=== PATIENT | male | born 1995 | race Caucasian/White ===

== ENCOUNTER → 2018-02-21 | Outpatient (CLI) | payer OTHER | LOC: LAB 16:09 | PROVIDERS: ATTEND Physician Assistant Medical | DX: R19.7 Diarrhea, unspecified (principal); R14.0 Abdominal distension (gaseous) | CPT/HCPCS: 36415; 82784; 87324; 87449 ==

== ENCOUNTER 2018-03-28 16:52 | Emergency (ER) | payer OTHER ==
--- NOTE | 2018-03-28 17:21 | ER Report ---
History and Physical Time Seen By MD: 17:07 Hx. of Stated Complaint: pt reports possible stomach ulcer since november HPI/ROS CHIEF COMPLAINT: epigastric pain HISTORY OF PRESENT ILLNESS: Pt states that he has had epigastric pain intermittently since November. Pt initially saw Dr. Shen who put him on Probiotics and when that did not work he went down to [place] to the gastric center and was placed on Citrosell. Pt states the pain has not improved. It comes and goes. Burning, achy pain. Pt not using anything otc. Pt statse coffee, alcohol, dairy make it worse. not sure if it is positional. no fevers. Pts bowel movement texture flutuate and feels he may have seen blood in past. no blood today. no vomiting or nausea. no fevers. No hx of ulcerative colitis or chrons, Pt statse grandmother had colon ca. REVIEW OF SYSTEMS: Constitutional: No fever, no chills. Eyes: No discharge. ENT: No sore throat. Cardiovascular: No chest pain, no palpitations. Respiratory: No cough, no shortness of breath. Gastrointestinal: + abdominal pain, no vomiting. Genitourinary: No hematuria. Musculoskeletal: No back pain. Skin: No rashes. Neurological: No headache. Allergies: Coded Allergies: No Known Drug Allergies (Unverified , 03/28/18) Home Meds Active Scripts Omeprazole (OMEPRAZOLE) 40 Mg Capsule.dr, 40 MG PO QDAY for 30 Days, #30 CAP Prov:KIMBERLY NEFF V DO 03/28/18 Past Medical/Surgical History pmhx abdominal pain Pshx: myringotomy tubes, wrist surgery Hx Smoking: No Hx Alcohol Use: Yes Constitutional Vital Sign - Last 24 Hours 03/28/18 17:00 Temp 97.9 Pulse 115 Resp 16 B/P (MAP) 140/106 Pulse Ox 96 O2 Delivery Room Air Physical Exam General Appearance: The patient is alert, has no immediate need for airway protection and no signs of toxicity. Eyes: Pupils equal and round no pallor or injection, EOMI ENT: no pharyngeal erythema or exudates, Mucous membranes are moist Respiratory: There are no retractions, lungs are clear to auscultation. Cardiovascular: Regular rate and rhythm. pulses are equal and symmetrical Gastrointestinal: Abdomen is soft with minimal tenderness epigastric, no masses, bowel sounds normal, no guarding, no rigidity or rebound Neurological: Cranial nerves II-XII grossly intact, no sensory or motor loss Skin: Warm and dry, no rashes. Musculoskeletal: Neck is supple non tender, no vertebral tenderness Extremities are nontender, nonswollen and have full range of motion. DIFFERENTIAL DIAGNOSIS: After history and physical exam differential diagnosis was considered for gastritits, peptic ulcer (gastric, stress vs h. pylori), pancreatitis, colitis Medical Decision Making Data Points Result Diagram: 03/28/18 1727 03/28/18 1727 Laboratory Hematology Test 03/28/18 17:27 Red Blood Count 6.55 M/uL (4.00-5.60) Mean Corpuscular Volume 85.5 fL (80.0-96.0) Mean Corpuscular Hemoglobin 29.8 pg (26.0-33.0) Mean Corpuscular Hemoglobin Concent 34.9 g/dL (32.0-36.0) Red Cell Distribution Width 13.1 % (11.5-14.5) Mean Platelet Volume 8.4 fL (7.2-11.1) Neutrophils (%) (Auto) 61.2 % (39.4-72.5) Lymphocytes (%) (Auto) 26.4 % (17.6-49.6) Monocytes (%) (Auto) 7.6 % (4.1-12.4) Eosinophils (%) (Auto) 4.3 % (0.4-6.7) Basophils (%) (Auto) 0.5 % (0.3-1.4) Nucleated RBC Relative Count (auto) 0.8 /100WBC Neutrophils # (Auto) 5.7 K/uL (2.0-7.4) Lymphocytes # (Auto) 2.5 K/uL (1.3-3.6) Monocytes # (Auto) 0.7 K/uL (0.3-1.0) Eosinophils # (Auto) 0.4 K/uL (0.0-0.5) Basophils # (Auto) 0.0 K/uL (0.0-0.1) Nucleated RBC Absolute Count (auto) 0.07 K/uL Sodium Level 141 mmol/L (137-145) Potassium Level 3.6 mmol/L (3.5-5.0) Chloride Level 101 mmol/L (98-107) Carbon Dioxide Level 23 mmol/L (22-30) Blood Urea Nitrogen 11 mg/dl (9-21) Creatinine 1.10 mg/dl (0.66-1.25) Glomerular Filtration Rate Calc > 60.0 Random Glucose 114 mg/dl (75-110) Calcium Level 9.4 mg/dl (8.4-10.2) Total Bilirubin 0.4 mg/dl (0.2-1.3) Aspartate Amino Transf (AST/SGOT) 27 U/L (0-35) Alanine Aminotransferase (ALT/SGPT) 22 U/L (0-56) Alkaline Phosphatase 99 U/L (0-126) Total Protein 7.5 gm/dl (6.3-8.2) Albumin 4.5 g/dl (3.5-5.0) Lipase 120 U/L (23-300) Helicobacter pylori IgG Antibody Negative (NEGATIVE) Chemistry Test 03/28/18 17:27 White Blood Count 9.3 k/uL (4.5-11.0) Red Blood Count 6.55 M/uL (4.00-5.60) Hemoglobin 19.5 g/dL (14.0-18.0) Hematocrit 56.0 % (42.0-52.0) Mean Corpuscular Volume 85.5 fL (80.0-96.0) Mean Corpuscular Hemoglobin 29.8 pg (26.0-33.0) Mean Corpuscular Hemoglobin Concent 34.9 g/dL (32.0-36.0) Red Cell Distribution Width 13.1 % (11.5-14.5) Platelet Count 231 K/uL (150-450) Mean Platelet Volume 8.4 fL (7.2-11.1) Neutrophils (%) (Auto) 61.2 % (39.4-72.5) Lymphocytes (%) (Auto) 26.4 % (17.6-49.6) Monocytes (%) (Auto) 7.6 % (4.1-12.4) Eosinophils (%) (Auto) 4.3 % (0.4-6.7) Basophils (%) (Auto) 0.5 % (0.3-1.4) Nucleated RBC Relative Count (auto) 0.8 /100WBC Neutrophils # (Auto) 5.7 K/uL (2.0-7.4) Lymphocytes # (Auto) 2.5 K/uL (1.3-3.6) Monocytes # (Auto) 0.7 K/uL (0.3-1.0) Eosinophils # (Auto) 0.4 K/uL (0.0-0.5) Basophils # (Auto) 0.0 K/uL (0.0-0.1) Nucleated RBC Absolute Count (auto) 0.07 K/uL Glomerular Filtration Rate Calc > 60.0 Calcium Level 9.4 mg/dl (8.4-10.2) Total Bilirubin 0.4 mg/dl (0.2-1.3) Aspartate Amino Transf (AST/SGOT) 27 U/L (0-35) Alanine Aminotransferase (ALT/SGPT) 22 U/L (0-56) Alkaline Phosphatase 99 U/L (0-126) Total Protein 7.5 gm/dl (6.3-8.2) Albumin 4.5 g/dl (3.5-5.0) Lipase 120 U/L (23-300) Helicobacter pylori IgG Antibody Negative (NEGATIVE) ED Course/Re-evaluation ED Course Spoke wtih pt at length. Suspect will require outpt endoscopy. start a ppi Decision to Disposition Date: March 28, 2018 Decision to Disposition Time: 17:54 Depart Departure Latest Vital Signs Vital Signs Date Time Temp Pulse Resp B/P (MAP) Pulse Ox O2 Delivery O2 Flow Rate FiO2 03/28/18 17:00 97.9 115 16 140/106 96 Room Air Impression: Primary Impression: Epigastric abdominal pain Condition: Condition Unchanged Disposition: HOME OR SELF-CARE Referrals: SPRING MORALES MD 2 Days LIZBETH JACOBS MD 2 Days New Scripts Omeprazole (OMEPRAZOLE) 40 Mg Capsule. 40 MG PO QDAY for 30 Days, #30 CAP Prov: KIMBERLY NEFF DO 03/28/18 Patient Instructions: Epigastric Pain (GEN) Additional Instructions: Omeprazole once a day until you have different instructions by surgery. Follow up with surgery (either Dr. Morlaes or Dr. Jacobs) to schedule a possible EGD, scope of your stomach and esophagus, for further evaluation and visualization of your area of pain. Stay away for coffee, alcohol, chocolate or any other substances that irritate your abdomen. KIMBERLY NEFF DO March 28, 2018 17:21
[2018-03-28 17:30] VITALS: BP 125/88
[2018-03-28 17:35] LABS: PLATELET COUNT, AUTOMATED 231 K/uL (150-450)
[2018-03-28] MEDS ORDERED: OMEP40CA48 PO (17:49)
[2018-03-28] MEDS ORDERED: PANTOPRAZOLE SOD 40 MG TABEC PO ONE (17:55)
== END 2018-03-28 18:01 | disposition home or self-care (01) ==
LOC: ER 16:52
DX: R10.13 Epigastric pain (principal)
CPT/HCPCS: 36415; 82040; 82247; 82310; 82374; 82435; 82565; 82947; 83690; 84075; 84132; 84155; 84295; 84450; 84460; 84520; 85025; 86677; 99283

== ENCOUNTER 2018-04-04 01:21 | Day surgery (SDC) | payer OTHER ==
[~2018-04-04] VITALS: Ht 188 cm; Wt 66.7 kg
[~2018-04-04 01:21] MED LIST: OMEP40CA48 PO
--- NOTE | 2018-04-04 06:54 | Short(Outpt) Discharge Summary ---
Discharge Summary Reason for Hosp/Final Diag: (1) Epigastric abdominal pain Status: Acute Hospital Course & Plan: egd was normal Departure Discharge to: Home Discharge Instructions Home Meds Active Scripts Omeprazole (OMEPRAZOLE) 40 Mg Capsule.dr, 40 MG PO QDAY for 30 Days, #30 CAP Prov:KIMBERLY NEFF DO 03/28/18 Diet: Regular Activity: As Tolerated SPRING JOHNSON MD April 04, 2018 06:54
--- NOTE | 2018-04-04 06:54 | Post Operative Progress Note ---
Post Operative Progress Note Date: April 04, 2018 Time: 10:38 Surgeon: aishwarya Anesthesia: dr mclain Pre-Op Diagnosis: epigastric pain Post-Op Diagnosis: normal egd Procedure(s): egd SPRING JOHNSON MD April 04, 2018 06:54
[2018-04-04] MEDS: NORMOSOL R SOLN(*) 1000 ML BAG 1,000 ML IV PRN ×2 (08:22→10:50)
[2018-04-04 08:49] VITALS: BP 127/90
[2018-04-04] MEDS ORDERED: PROPOFOL EMUL(*) 10MG/ML 20 ML 20 ML ONE ×3 (09:05→10:59)
[2018-04-04] MEDS ORDERED: LIDOCAINE/SOD BICARB 8.4% SYR ID ONE (10:25)
[2018-04-04 10:36] VITALS: BP 102/61
[2018-04-04 10:45] VITALS: BP 82/61
[2018-04-04 10:54] VITALS: BP 117/88
[2018-04-04] MEDS ORDERED: SINCALIDE 5 MCG VIAL INJ ONE (11:00)
--- NOTE | 2018-04-04 13:50 | RADIOLOGY IMAGING REPORT ---
FACILITY: [facility] - [place] PATIENT NAME: Leon Hwang : 1995 MR: [id number] V: [id number] EXAM DATE: ORDERING PHYSICIAN: SPRING JOHNSON TECHNOLOGIST: Location: [facility] Patient: Leon Hwang : 1995 Visit/Account:[id number] Date of Sevice: 04/04/2018 GALLBLADDER W KINEVAC HISTORY: epigastric pain COMPARISON: None. FINDINGS: Gallbladder: There is no demonstration of gallbladder stones sludge gallbladder wall thickening or pe richolecystic fluid. The gallbladder volume pre-Kinevac injection was 32.3 mL. The patient then rec eived 2.7 mL of CCK and the maximum gallbladder contraction revealed a volume of 10.1 mL. This is eq uivalent to a gallbladder ejection fraction of 69%. IMPRESSION: Normal gallbladder ejection fraction of 69% Report Dictated By: Lizbeth Sheffield MD at 04/04/2018 1:44 PM Report E-Signed By: Lizbeth Sheffield MD at 04/04/2018 1:47 PM WSN:OLGA
--- NOTE | 2018-04-04 17:14 | OPERATIVE REPORT 1 ---
EVENT DATE: April 04, 2018 SURGEON: Larry Morales MD ANESTHESIOLOGIST: Cristian Hodges MD ANESTHESIA: Sedation. PREOPERATIVE DIAGNOSIS Epigastric pain. POSTOPERATIVE DIAGNOSIS Normal-appearing esophagogastroduodenoscopy. PROCEDURE PERFORMED Esophagogastroduodenoscopy. DESCRIPTION OF PROCEDURE Patient was placed in left lateral decubitus position and given intravenous sedation. Flexible gastroscope was inserted and advanced without difficulty. The GE junction was at 45 cm, distinct. No ulceration, inflammation. No erosions. No narrowings. We entered the stomach which was empty, passed through the pylorus and second and third portions of the duodenum, which were normal. Duodenal bulb was normal. Pylorus was normal. Antrum was normal. Body of stomach was normal. Scope was retroflexed. There were no fundic lesions. There was no hiatal hernia. Scope was slowly withdrawn. The esophagus was carefully visualized, and that appeared to be normal. MTDD
== END 2018-04-04 12:34 | disposition home or self-care (01) ==
LOC: OR 01:21
PROVIDERS: ATTEND Surgery
DX: R10.13 Epigastric pain (principal)
CPT/HCPCS: 43235; 76705; J2704; J2805

== ENCOUNTER → 2019-03-28 | Outpatient (REF) | payer OTHER | LOC: ZZSENDIN 11:02 | PROVIDERS: ATTEND Family Medicine | DX: R19.7 Diarrhea, unspecified (principal) | CPT/HCPCS: 82705 ==

== ENCOUNTER 2019-04-19 01:47 | Day surgery (SDC) | payer OTHER ==
[~2019-04-19] VITALS: Ht 185.4 cm; Wt 63.5 kg
[2019-04-19] MEDS ORDERED: LIDOCAINE MPF 1% 5 ML VIAL ONE (08:17)
[2019-04-19] MEDS ORDERED: PROPOFOL EMUL(*) 10MG/ML 20 ML 40 ML ONE (08:17)
[2019-04-19] MEDS ORDERED: LIDOCAINE/SOD BICARB 8.4% SYR ID ONE (08:30)
[2019-04-19] MEDS ORDERED: NORMOSOL R SOLN(*) 1000 ML BAG 1,000 ML IV PRN (08:30)
[2019-04-19 08:37] VITALS: BP 121/88
[2019-04-19 10:27] VITALS: BP 102/63
[2019-04-19 10:50] VITALS: BP 125/75
[2019-04-19 10:52] VITALS: BP 123/83
== END 2019-04-19 11:22 | disposition home or self-care (01) ==
LOC: OR 01:47
PROVIDERS: ATTEND Family Medicine
DX: K52.9 Noninfective gastroenteritis and colitis, unspecified (principal); R15.2 Fecal urgency
CPT/HCPCS: 00811; 45380; 88305; J2001; J2704

== ENCOUNTER → 2019-04-19 | Outpatient (CLI) | payer OTHER ==
[~2019-04-19] MED LIST changes: +IBUP-136 PO
== END ==
LOC: LAB 14:59
PROVIDERS: ATTEND Family Medicine
DX: K52.9 Noninfective gastroenteritis and colitis, unspecified (principal)
CPT/HCPCS: 36415; 86803; 87269; 87340

== ENCOUNTER → 2019-04-26 | Outpatient (CLI) | payer OTHER ==
[2019-04-26 13:15] LABS: PLATELET COUNT, AUTOMATED 316 K/uL (150-450)
== END ==
LOC: LAB 12:53
PROVIDERS: ATTEND Nurse Practitioner Family
DX: K52.89 Other specified noninfective gastroenteritis and colitis (principal); R19.7 Diarrhea, unspecified
CPT/HCPCS: 36415; 82040; 82247; 82310; 82374; 82435; 82565; 82784; 82947; 83516; 83540; 83550; 84075; 84132; 84155; 84295; 84450; 84460; 84520; 85025; 86140; 86480

== ENCOUNTER → 2019-06-08 | Outpatient (CLI) | payer OTHER ==
[2019-06-08 12:46] LABS: PLATELET COUNT, AUTOMATED 257 K/uL (150-450)
== END ==
LOC: LAB 12:25
PROVIDERS: ATTEND Nurse Practitioner Family
DX: K52.89 Other specified noninfective gastroenteritis and colitis (principal); R19.7 Diarrhea, unspecified
CPT/HCPCS: 36415; 82040; 82247; 82310; 82374; 82435; 82565; 82947; 84075; 84132; 84155; 84295; 84450; 84460; 84520; 85025; 86140